=== PATIENT | female | born 1965 | race Caucasian/White ===

== ENCOUNTER 2017-06-07 18:22 | Emergency (ER) | payer OTHER ==
[2017-06-07] MEDS ORDERED: LIDOCAINE 1% 10 ML VIAL INJ ONE (19:43)
--- NOTE | 2017-06-07 20:08 | RAD ---
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 Probable intra-articular extension proximally. No dislocation. Electronically signed by: Rock Espinosa MD 06/07/2017 8:06 PM ASSISTANT PURCHASING MANAGER
[2017-06-07] MEDS ORDERED: HYDROcodone 7.5MG/APAP 325MG 1 EA TAB PO ONE (20:15)
--- NOTE | 2017-06-07 20:31 | ED.PDOC ---
History of Present Illness - General Chief Complaint: Upper Extremity Injury Stated Complaint: jammed finger Time Seen by Provider: 06/07/17 19:17 Source: patient Exam Limitations: no limitations - History of Present Illness Initial Comments: the patient is a 51-year-old female who presents to the emergency room after having fallen while walking across the grass. She has a deformity to the fourth digit with external rotation towards the ulnar of the digit. She is neurovascularly preserved. It does cause some pain. She has not injured that finger before. No other injuries from the fall. It was simply a trip. Timing/Duration: 1-3 hours Severity: moderate Improving Factors: immobilization Worsening Factors: movement Associated Symptoms: denies symptoms Allergies/Adverse Reactions: Allergies Penicillins Allergy (Verified 06/07/17 19:13) Sulfa Antibiotics Allergy (Verified 06/07/17 19:13) Home Medications: Ambulatory Orders Hmawhqmooshuy-Vbqe-Qjflwnxhbf [Fioricet] 1 ea PO Q8H PRN #21 tab 06/07/17 Review of Systems - Review of Systems Constitutional: States: no symptoms reported EENTM: States: no symptoms reported Respiratory: States: no symptoms reported Cardiology: States: no symptoms reported Gastrointestinal/Abdominal: States: no symptoms reported Genitourinary: States: no symptoms reported Musculoskeletal: States: see HPI Skin: States: no symptoms reported Neurological: States: no symptoms reported Endocrine: States: no symptoms reported All other Systems: No Change from Baseline Past Medical History (General) - Patient Medical History Hx Asthma: No Hx Thyroid Disease: Yes Hx Cancer: Yes - breast CA - Vaccination History Hx Tetanus, Diphtheria Vaccination: No Hx Influenza Vaccination: Yes Hx Pneumococcal Vaccination: Yes - Social History Hx Tobacco Use: Yes Hx Alcohol Use: Yes - social Family Medical History - Family History Mother Hx Family Cancer: Yes - skin Physical Exam - Physical Exam General Appearance: Alert, Comfortable, No apparent distress Eye Exam: bilateral normal Ears, Nose, Throat: hearing grossly normal Neck: full range of motion, supple Respiratory: no respiratory distress, no accessory muscle use Cardiovascular/Chest: normal peripheral pulses, no edema Peripheral Pulses: radial,right: 2+, radial,left: 2+ Rectal Exam: deferred Extremity: no pedal edema, no calf tenderness, normal capillary refill, other - pain in the fourth digit of the right hand there is some limited flexion. There is some external rotation at the proximal interphalangeal joint there is some mild bruising. There is no laceration. 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 II-XII nml as tested, no motor/sensory deficits, alert, normal mood/affect, oriented x 3 Skin Exam: normal color - with the exception of the bruising as above Comments: Vital Signs - 24 hr 06/07/17 06/07/17 19:02 19:58 Temperature 97.0 F L 97.6 F Pulse Rate [ 64 63 left] Respiratory 18 20 Rate Blood Pressure 139/71 136/79 [left] O2 Sat by Pulse 99 93 L Oximetry Progress - Progress Progress: 06/07/17 20:31 the patient is a 51-year-old female presenting to the emergency room secondary to sustaining a spiral fairly comminuted fracture to the proximal phalanx of the fourth digit of the right hand after a fall. There is a possibility of the fracture extending into the joint at the proximal end. After risks and benefits were explained the patient did agree to reduction. The finger was cleaned with alcohol. A digital block was performed with 7 cc of lidocaine without epinephrine. The fracture site was repositioned and the digit was austyn taped to the third finger. A volar splint with curvature at the fingers was placed. The patient tolerated this well. The patient was written for Fioricet for as needed use for pain control. She does need contact her orthopedist for further evaluation early next week to see if she is going to have any further repair required to maintain functionality. She is right- handed. no ring is in place. ER warnings were given for any significant worsening. Departure - Departure Clinical Impression: Fracture of finger, closed Qualifiers: Encounter type: initial encounter Finger: ring finger Phalanx: proximal Fracture alignment: displaced Laterality: right Qualified Code(s): S62.614A - Displaced fracture of proximal phalanx of right ring finger, initial encounter for closed fracture Disposition: Discharge to Home or Self Care Condition: Fair Departure Forms: ED Discharge - Pt. Copy, Patient Portal Self Enrollment Instructions: DI for Finger Fracture Diet: regular diet Activity: no pushing/pulling with affected limb Prescriptions: Afnwgisplttlw-Lqhp-Lolabkhulk [Fioricet] 1 ea PO Q8H PRN #21 tab PRN Reason: Pain Home Medications: Ambulatory Orders Rgeenpjfuglis-Ehah-Gsmgjyqzru [Fioricet] 1 ea PO Q8H PRN #21 tab 06/07/17 Additional Instructions: the patient is a 51-year-old female presenting to the emergency room secondary to sustaining a spiral fairly comminuted fracture to the proximal phalanx of the fourth digit of the right hand after a fall. There is a possibility of the fracture extending into the joint at the proximal end. The fracture site was repositioned and the digit was austyn taped to the third finger. A volar splint with curvature at the fingers was placed. The patient tolerated this well. The patient was written for Fioricet for as needed use for pain control. She does need contact her orthopedist for further evaluation early next week to see if she is going to have any further repair required to maintain functionality. She is right-handed. no ring is in place. ER warnings were given for any significant worsening.
[2017-06-07 21:00] VITALS: BP 132/75; TEMP 98.1; O2SAT 95
== END 2017-06-07 21:00 | disposition home or self-care (01) ==
LOC: ER 18:22
DX: S62.614A Displaced fracture of proximal phalanx of right ring finger, initial encounter for closed fracture (principal); E07.9 Disorder of thyroid, unspecified; F17.200 Nicotine dependence, unspecified, uncomplicated; Z88.2 Allergy status to sulfonamides; Z88.0 Allergy status to penicillin; Z85.3 Personal history of malignant neoplasm of breast; W01.0XXA Fall on same level from slipping, tripping and stumbling without subsequent striking against object, initial encounter; Y92.89 Other specified places as the place of occurrence of the external cause; Y93.01 Activity, walking, marching and hiking